=== PATIENT | male | born 1950 | race Caucasian/White ===

== ENCOUNTER 2019-07-09 15:01 | Emergency (ER) | payer OTHER ==
[2019-07-09 15:39] VITALS: TEMP 97.9; BMI 21.7
[2019-07-09] MEDS ORDERED: CEFAZOLIN 1 GM/D5W 1 GM/50 ML BAG IVPB ONE (15:59)
[2019-07-09] MEDS ORDERED: DIPHTH,PERTUSS(ACELL),TET 0.5 ML DISP.SYRIN IM ONE ×2 (16:00→16:21)
[2019-07-09] MEDS ORDERED: MORPHINE SULFATE 2 MG/ML VIAL IVPUSH ONE (16:00)
--- NOTE | 2019-07-09 16:01 | PDOC ---
Attending Attestation - Resident Resident Name: Mavis Mendenhall - ED Attending Attestation I have performed the following: I have examined & evaluated the patient, The case was reviewed & discussed with the resident, I agree w/resident's findings & plan, Exceptions are as noted - HPI HPI: 07/09/19 15:59 68-year-old gentleman history of EtOH abuse resenting with right leg pain, patient states he was crossing the street when he slipped and felt his leg turned associated with severe right leg pain. Patient denies any numbness, tingling denies any head injury, neck pain, back pain. He does endorse right wrist pain right hip pain in addition to his right lower extremity pain. Patient denies any chest pain, shortness of breath, fever, chills, nausea, vomiting, blurry vision, focal numbness, tingling or weakness, abdominal pain. Exam: GENERAL: The patient is awake, alert, and fully oriented, Nontoxic - in no acute distress. HEAD: Normocephalic, atraumatic. EYES: extraocular movements intact, sclera anicteric, conjunctiva clear. ENT: Normal voice, Moist mucous membranes. NECK: Normal range of motion, supple BACK: No focal bony or midline cervical, thoracic, lumbar tenderness. No bruising, ecchymosis, crepitus, step-offs noted. LUNGS: Breath sounds equal, clear to auscultation bilaterally. No wheezes, no rhonchi, no rales. HEART: Regular rate and rhythm, normal S1 and S2 without murmur, rub or gallop. ABDOMEN: Soft, nontender, No guarding, no rebound. No CVA tenderness EXTREMITIES: Open wound and crepitus/focal tenderness noted on the proximal right almonte, DP and PT pulses intact and symmetric, sensation intact and symmetric bilaterally. Mild discomfort noted on palpation to the right hip. Mild tenderness on the distal R radius. NEUROLOGICAL: No facial assymetry, Normal speech, moving all 4 ext spontaneously and symmetricially (RLE limited due to pain) PSYCH: Normal mood, normal affect. SKIN: Warm, Dry, normal turgor, open woundon R almonte, suspect open tib fx will obtain xray to ro hip fx, wrist fx will give tetnaus, ancef - Medical Decision Making 07/09/19 18:56 Patient's lower extremity x-ray noted for a tib-fib fracture was reduced- cw maisoneuve fx pt noted to have expanding mass in proximal tibia - DP/PT pulses palpable, cap refill intact - will continue to observe for compartment syndrome and neuro vascular compromise pt given ancef, splinted with posterior splint and u splint pts wrist fx cw scaphoid fracture and was placed in volar splint discussed with dr. schaeffer, - deferred and recommended transfer for trauma workup at [facility] will trasnfer to [facility] for trauma workup and ortho eval Heart Score/ECG Review - ECG Impressions Comment:: 07/09/19 17:34 Twelve-lead EKG was performed and reviewed by me. There is normal sinus rhythm with a normal rate. Rate of 66 The axis is normal. The intervals are normal. There is normal R wave progression There are no ST or T wave abnormalities. Impression: Normal twelve-lead EKG
[2019-07-09] MEDS ORDERED: MORPHINE SULFATE 2 MG/ML VIAL ONE ×2 (16:13→20:11)
[2019-07-09] MEDS ORDERED: CEFAZOLIN 1 GM/D5W 1 GM/50 ML BAG ONE (16:20)
[2019-07-09 16:29] LABS: BASO % 0.6 % (0-2.0); EOS % 1.1 % (0-4.5); HEMOGLOBIN 13.2 GM/dL (11.7-16.9); LYMPH % 10.9 % (8-40); MCH 33.3 pg (25.7-33.7); MCHC 33.7 g/dl (32.0-35.9); MEAN CELL VOLUME 98.7 fl (80-96); MEAN PLT VOLUME 7.5 fl (7.5-11.1); MONO % 11.4 % (3.8-10.2); PLATELET COUNT 231 K/MM3 (134-434); RBC 3.95 M/mm3 (4.00-5.60); RDW 14.6 % (11.9-15.9); WHITE BLOOD COUNT 7.1 K/mm3 (4.0-10.0)
[2019-07-09] MEDS ORDERED: morphine SULFATE 4 MG/ML VIAL ONE ×2 (16:31→19:09)
[2019-07-09] MEDS ORDERED: morphine CARPU-JECT 4 MG/1 ML DISP.SYRIN IVPUSH ONE ×3 (16:31→20:07)
[2019-07-09 16:40] LABS: INR 0.98 (0.83-1.09); PROTHROMBIN TIME (PATIENT) 11.6 SEC (9.7-13.0)
[2019-07-09 16:49] LABS: BILIRUBIN,TOTAL 0.4 mg/dL (0.2-1); BLOOD UREA NITROGEN 7.7 mg/dL (7-18); CREATININE 0.7 mg/dL (0.55-1.3); POTASSIUM 3.8 mmol/L (3.5-5.1); TOT PROT 7.3 g/dl (6.4-8.2)
--- NOTE | 2019-07-09 16:54 | PDOC ---
History of Present Illness - General Chief Complaint: Pain Stated Complaint: RT ANKLE INJ Time Seen by Provider: 07/09/19 15:42 History Source: Patient Exam Limitations: No Limitations - History of Present Illness Initial Comments: Pt is a 68 yo M, with PMH of polysubstance abuse (current alcohol and prior IVDU ), who is presenting via EMS after a fall. Pt states he was walking in the street when he slipped and fell into the snow, although he is unclear on the mechanism. Pt denies hitting his head, having LOC, or nausea/vomiting. Pt currently complains of pain in his R wrist, R hip, and R lower leg. Pt states his R foot "was turned all the way out" before he got into the ambulance, it is unclear if any reduction was completed or attempted via EMS. Pt denies any prior withdrawal from alcohol or seizures, but does endorse frequent falls. Pt does not have a PCP and it is unclear if he has other medical problems. Pt denies any recent fevers/chills, headache, vision changes, syncope, chest pain, palpitations, SOB, nausea/vomiting, abdominal pain, urinary symptoms, diarrhea/ constipation, or leg swelling. Allergies: NKDA PCP: None Social: Pt smokes 1/2 ppd and "a quart of beer per day". Pt denies any current IVDU (last use >10 years ago). Pt denies any recent travel or sick contacts. Surgical: none but "broke his right leg a couple of times" Family: no relevant history. 07/09/19 16:46 07/09/19 17:41 07/09/19 17:45 Past History - Travel Traveled outside of the country in the last 30 days: No Close contact w/someone who was outside of country & ill: No - Past Medical History Allergies/Adverse Reactions: Allergies Allergy/AdvReac Type Severity Reaction Status Date / Time No Known Allergies Allergy Verified 07/09/19 16:07 CVA: No COPD: No - Psycho Social/Smoking Cessation Hx Smoking History: Current every day smoker Number of Cigarettes Smoked Daily: 20 Information on smoking cessation initiated: Yes Hx Alcohol Use: Yes ("I drink beer") Drug/Substance Use Hx: No Trauma Specific PMHX - Complaint Specific PMHX Arthritis: No Back Injury: No Neck Injury: No Hx Sacro Iliac Joint Dysfunction: No Review of Systems - Review of Systems Able to Perform ROS?: Yes Is the patient limited Danish proficient: No Constitutional: Yes: Weight Stable. No: Chills, Diaphoresis, Fever, Loss of Appetite, Malaise, Weakness HEENTM: No: Recent change in vision, Nose Congestion, Throat Pain, Throat Swelling, Difficulty Swallowing Respiratory: No: Cough, Orthopnea, Shortness of Breath Cardiac (ROS): No: Chest Pain, Edema, Irregular Heart Rate, Lightheadedness, Palpitations, Syncope, Chest Tightness ABD/GI: No: Constipated, Diarrhea, Nausea, Poor Appetite, Poor Fluid Intake, Vomiting : No: Burning, Dysuria, Frequency, Pain, Urgency Musculoskeletal: Yes: See HPI, Joint Pain. No: Back Pain, Joint Swelling, Muscle Weakness, Neck Pain Integumentary: No: Change in Color, Rash Neurological: No: Headache, Numbness, Weakness, Unsteady Gait, Dizziness Psychiatric: No: Sleep Pattern Change, Change in Appetite Endocrine: No: Increased Urine, Change in Weight Hematologic/Lymphatic: No: Anemia, Blood Clots, Easy Bleeding, Easy Bruising All Other Systems: Reviewed and Negative *Physical Exam - Vital Signs Last Vital Signs Temp Pulse Resp BP Pulse Ox 97.9 F 75 20 169/59 L 100 07/09/19 15:05 07/09/19 15:05 07/09/19 15:05 07/09/19 15:05 07/09/19 15:05 - Physical Exam HTN (169/59), pt afebrile. Pt in visible pain with movement, visible bleeding from R lower leg. Thin body habitus. Pt alert and oriented x3. social worker aide generally intact, muscular strength and sensation intact. B/l LE neurovascularly intact. Pt can move toes of R foot, but will not flex or extend at the ankle or at the knee due to pain. TTP over R hip. Old scar down midline of R leg, with deformity at distal tibia. New area of deformity over mid -shaft tibia with ~0.5 cm laceration, bleeding controlled with pressure dressing. No midline spinal tenderness, step-offs, or crepitus. Head normocephalic, atraumatic. Eyes PERRLA, EOMI. Oropharynx without erythema or exudates, no LAD b/l. No nasal congestion. Hearing intact. Clear heart sounds, S1/S2, no JVD, b/l pedal edema, or heart murmur. Clear lung sounds, no respiratory distress, wheezes, crackles, or accessory muscle use. No abdominal or CVA tenderness to palpation, no rebound, no guarding. Abdomen soft, non-distended, and with normoactive bowel sounds. Skin without jaundice or rash. 07/09/19 17:46 07/09/19 17:56 Update PE: Pressure bandage changed. RLE neurovascularly intact. RLE splinted with stirrup and posterior splint. R wrist splinted in short arm orthoglass. RUE neurovascularly intact. 07/09/19 19:45 Procedures - Splinting Splint Location: Right: Wrist (scaphoid/short arm splint), Ankle (tib/fib stirrup and post leg) Pre-Proc Neuro Vasc Exam: normal Hand-Made Type: orthoglass Splint Type: Yes: Thumb Spica, Short Leg (post leg to knee and stirrup) Post-Proc Neuro Vasc Exam: normal Cirilo Bandage: yes Sling: No Complications: No ED Treatment Course - LABORATORY CBC & Chemistry Diagram: 07/09/19 16:10 07/09/19 16:10 - ADDITIONAL ORDERS Additional order review: Laboratory Results 07/09/19 16:10 PT with INR 11.60 INR 0.98 07/09/19 16:10 RBC 3.95 L MCV 98.7 H MCHC 33.7 RDW 14.6 MPV 7.5 Neutrophils % 76.0 Lymphocytes % 10.9 Monocytes % 11.4 H Eosinophils % 1.1 Basophils % 0.6 - RADIOLOGY Radiology Studies Ordered: Category Date Time Status ANKLE & FOOT-RIGHT* [RAD] Stat Radiology 07/09/19 16:01 Ordered - Medications Given in the ED: ED Medications Discontinued Medications Generic Name Dose Route Start Last Admin Trade Name Freq PRN Reason Stop Dose Admin Diphtheria/Tetanus/Acell Pertussis 0.5 ml 07/09/19 16:00 07/09/19 16:27 Boostrix - IM 07/09/19 16:01 0.5 ml .ONCE ONE Administration Cefazolin Sodium 1 gm in 50 mls @ 100 mls/hr 07/09/19 15:59 07/09/19 16:27 Ancef 1 Gm Premixed Ivpb - IVPB 07/09/19 16:28 100 mls/hr ONCE ONE Administration Morphine Sulfate 2 mg 07/09/19 16:00 07/09/19 16:18 Morphine Sulfate IVPUSH 07/09/19 16:01 2 mg ONCE ONE Administration Morphine Sulfate 4 mg 07/09/19 16:31 07/09/19 16:35 Morphine Injection - IVPUSH 07/09/19 16:32 4 mg ONCE ONE Administration Medical Decision Making - Medical Decision Making Pt was seen at bedside, also will be seen by attending Dr. Miller. Pt presenting with R wrist, R hip, and R leg pain after a fall. Will evaluate with x-rays of R wrist/hand, hip, tib/fib, and ankle/foot. Provided 2 mg IV morphine for improvement of pain. Providing tetanus booster and 1 g ancef for likely open tib/fib fracture. Will continue to reassess pt and monitor for symptomatic improvement. 07/09/19 19:47 CBC, CMP, and coags WNL X-ray of R tib/fib shows mid-shaft tibia fracture and distal fibula fx. wrist x-ray with scaphoid fracture and small avulsion piece. Provided additional 4 mg IV morphine Spoke with orthopedics (Dr. Akbar) who recommended transfer to trauma center due to multiple fractures and open tib/fib. Pt accepted to Dr. Murphy (Trauma) at [facility] for further evaluation and surgical repair of fractures. Extremities neurovascularly intact prior to transfer. R wrist and R lower leg splinted (see procedure note) Pt hemodynamically stable post morphine administration. 07/09/19 19:47 Discharge - Discharge Information Problems reviewed: Yes Clinical Impression/Diagnosis: Open fracture of tibia and fibula Qualifiers: Encounter type: initial encounter Open fracture type: open type I or II Laterality: right Qualified Code(s): S82.201B - Unspecified fracture of shaft of right tibia, initial encounter for open fracture type I or II; S82.401B - Unspecified fracture of shaft of right fibula, initial encounter for open fracture type I or II Scaphoid fracture of wrist Qualifiers: Encounter type: sequela Scaphoid bone location: middle third Fracture type: closed Fracture alignment: nondisplaced Laterality: right Qualified Code(s): S62.024S - Nondisplaced fracture of middle third of navicular [scaphoid] bone of right wrist, sequela Fall Qualifiers: Encounter type: initial encounter Qualified Code(s): W19.XXXA - Unspecified fall, initial encounter Condition: Stable Disposition: TRANSFER ACUTE CARE/OTHER HOSP - Admission No - Follow up/Referral - Patient Discharge Instructions - Post Discharge Activity - Transfer to Acute Care Facility Receiving Facility Name: [facility] Accepting Physician:: Dr. Murphy (Trauma)
[2019-07-09] MEDS ORDERED: ACETAMINOPHEN 1000 MG/100 ML VIAL (NON FORMULARY) IVPB ONE (20:06)
[2019-07-09 22:19] VITALS: BP 119/67; PULSE 71
--- NOTE | 2019-07-10 09:25 | EKG ---
Test Reason : Blood Pressure : / mmHG Vent. Rate : 066 BPM Atrial Rate : 066 BPM P-R Int : 116 ms QRS Dur : 074 ms QT Int : 416 ms P-R-T Axes : 044 082 080 degrees QTc Int : 436 ms NORMAL SINUS RHYTHM NORMAL ECG NO PREVIOUS ECGS AVAILABLE Confirmed by MD Jesus Manuel, Rg ([id number]) on 07/10/2019 9:25:23 AM Referred By: Confirmed By:Rg Ken MD
== END 2019-07-09 20:52 | disposition short-term general hospital (02) ==
LOC: JER 15:01
PROC: 2W3CX1Z Immobilization of Right Lower Arm using Splint (ICD-10-PCS; principal; 2019-07-09)
PROC: 2W3QX1Z Immobilization of Right Lower Leg using Splint (ICD-10-PCS; 2019-07-09)
PROC: 3E033NZ Introduction of Analgesics, Hypnotics, Sedatives into Peripheral Vein, Percutaneous Approach (ICD-10-PCS; 2019-07-09)
PROC: 3E0234Z Introduction of Serum, Toxoid and Vaccine into Muscle, Percutaneous Approach (ICD-10-PCS; 2019-07-09)
PROC: 3E03329 Introduction of Other Anti-infective into Peripheral Vein, Percutaneous Approach (ICD-10-PCS; 2019-07-09)
DX: S82.201B Unspecified fracture of shaft of right tibia, initial encounter for open fracture type I or II (principal); S62.024A Nondisplaced fracture of middle third of navicular [scaphoid] bone of right wrist, initial encounter for closed fracture; W00.0XXA Fall on same level due to ice and snow, initial encounter; Y93.89 Activity, other specified; Y92.410 Unspecified street and highway as the place of occurrence of the external cause; F17.210 Nicotine dependence, cigarettes, uncomplicated; F10.99 Alcohol use, unspecified with unspecified alcohol-induced disorder; F19.10 Other psychoactive substance abuse, uncomplicated
CPT/HCPCS: 29126; 29515; 36415; 71045-TC-FY; 73110-TC-RT-FY; 73130-TC-RT-FY; 73523-TC-FY; 73590-TC-RT-FY; 73610-TC-RT-FY; 73630-TC-RT-FY; 80053; 85025; 85610; 86850; 86900; 86901; 90471; 90715; 93005; 93010; 96365; 96375; 96376; 99283-25

== ENCOUNTER 2023-07-11 05:34 | Emergency (ER) | payer OTHER ==
[2023-07-11 05:40] VITALS: BMI 23.3
[2023-07-11 08:01] LABS: HEMATOCRIT 35.9 % (35.4-49); MCH 31.2 pg (25.7-33.7); MCHC 33.5 g/dl (32.0-35.9); MEAN CELL VOLUME 93.2 fl (80-96); MEAN PLT VOLUME 8.1 fl (7.5-11.1); PLATELET COUNT 244.5 10^3/uL (134-434); RBC 3.85 10^6/uL (4.00-5.60); RDW 14.2 % (11.9-15.9); WHITE BLOOD COUNT 6.5 10^3/uL (4.0-10.8)
[2023-07-11 08:39] LABS: INR 1.1 (0.83-1.09); PROTHROMBIN TIME (PATIENT) 12.8 SEC (9.7-13.0)
[2023-07-11 09:07] LABS: BILIRUBIN,TOTAL 0.4 mg/dl (0.2-1); CALCIUM 9.6 mg/dl (8.5-10.1); CREATININE 0.6 mg/dl (0.6-1.3); TOT PROT 6.9 g/dl (6.4-8.2)
[2023-07-11] MEDS ORDERED: ONDANSETRON 4 MG/2 ML VIAL IVPUSH PRN ×2 (10:13→15:16)
[2023-07-11] MEDS ORDERED: oxyCODONE HCL 5 MG TABLET PO PRN (10:13)
[2023-07-11] MEDS ORDERED: MIDAZOLAM HCL 2 MG/2 ML SINGLE DOSE VIAL ONE (10:16)
[2023-07-11] MEDS ORDERED: FENTANYL CITRATE/PF 50 MCG/ML VIAL ONE (10:17)
[2023-07-11] MEDS ORDERED: ROPIVACAINE HCL 0.5% 30ML VIAL ONE (10:17)
[2023-07-11] MEDS ORDERED: PROPOFOL 20 ML ONE ×3 (10:24→14:47)
[2023-07-11] MEDS ORDERED: TRANEXAMIC ACID 1000 MG/10 ML VIAL ONE (10:31)
[2023-07-11] MEDS ORDERED: VANCOMYCIN 1,000 MG VIAL (RESTRICTED TO ID ONLY) ONE (10:31)
[2023-07-11] MEDS ORDERED: ROCURONIUM BROMIDE 50 MG/5 ML SYRINGE ONE (12:51)
[2023-07-11] MEDS ORDERED: VANCOMYCIN 1,000 MG VIAL (RESTRICTED TO ID ONLY) IVPB ONE (14:00)
[2023-07-11] MEDS ORDERED: NEOSTIGMINE METHYLSULFATE 0.5 MG/1 ML - 10 ML MDV ONE (14:02)
[2023-07-11] MEDS ORDERED: ACETAMINOPHEN INJECTION 100 ML IVPB ONE (15:13)
[2023-07-11] MEDS ORDERED: KETOROLAC TROMETHAMINE 30 MG/1 ML VIAL ONE (15:13)
[2023-07-11] MEDS ORDERED: MAGNESIUM HYDROX 2400MG/30ML ORAL SUSPENSION 30 ML CUP PO PRN (15:16)
[2023-07-11] MEDS ORDERED: MAG HYDROX/AL HYDROX/SIMETH 30 ML UNIT-DOSE CUP PO PRN (15:16)
[2023-07-11] MEDS ORDERED: LACTATED RINGERS SOLUTION 1,000 ML IV SCH (15:30)
[2023-07-11] MEDS ORDERED: ACETAMINOPHEN 1000 MG/100 ML BAG IVPB ONE (15:51)
[2023-07-11] MEDS: oxyCODONE HCL 5 MG TABLET PO PRN ×2 (18:51→22:50)
[2023-07-11] MEDS: CEFAZOLIN SODIUM 2 GM in DEXTROSE 5%-WATER 100 ML IVPB SCH (20:22)
[2023-07-11] MEDS: SENNOSIDES/DOCUSATE COMBO (SENNA PLUS) TABLET (UD) PO SCH (21:05)
[2023-07-12] MEDS ORDERED: VANCOMYCIN 1,000 MG in DEXTROSE 5%-WATER - 250 ML IVPB ONE
[2023-07-12] MEDS: LACTATED RINGERS SOLUTION 1,000 ML IV SCH ×2 (02:57→10:36)
[2023-07-12] MEDS: CEFAZOLIN SODIUM 2 GM in DEXTROSE 5%-WATER 100 ML IVPB SCH ×2 (03:02→12:30)
[2023-07-12] MEDS: oxyCODONE HCL 5 MG TABLET PO PRN ×2 (04:30→09:28)
[2023-07-12 05:04] VITALS: RESP 18
[2023-07-12] MEDS ORDERED: ACETAMINOPHEN 500 MG TABLET (FP) PO SCH (07:00)
[2023-07-12] MEDS ORDERED: ASPIRIN 325 MG TABLET PO SCH (08:00)
[2023-07-12 08:06] LABS: HEMATOCRIT 28.4 % (35.4-49); HEMOGLOBIN 9.4 G/dL (11.7-16.9); MCHC 33.1 g/dl (32.0-35.9); MEAN CELL VOLUME 93.3 fl (80-96); PLATELET COUNT 222.9 10^3/uL (134-434); RBC 3.04 10^6/uL (4.00-5.60); RDW 14.1 % (11.9-15.9); WHITE BLOOD COUNT 8.3 10^3/uL (4.0-10.8)
[2023-07-12 08:18] LABS: CALCIUM 8.7 mg/dl (8.5-10.1); CREATININE 0.6 mg/dl (0.6-1.3)
[2023-07-12] MEDS: SENNOSIDES/DOCUSATE COMBO (SENNA PLUS) TABLET (UD) PO SCH (09:29)
[2023-07-12] MEDS ORDERED: PANTOPRAZOLE 40 MG TABLET PO SCH (10:00)
[2023-07-12] MEDS ORDERED: MULTIVITAMINS (DAILY MVI) TABLET (FP) PO SCH (10:00)
[2023-07-12 11:20] VITALS: BP 122/62; PULSE 76; TEMP 97.5
== END 2023-07-12 16:36 | disposition home or self-care (01) ==
LOC: FER 05:34 → FM/S 06:38 → UNDODISOB 07-12 15:12
PROVIDERS: ADMIT Internal Medicine; ATTEND Internal Medicine
PROC: 0RRK0J7 Replacement of Left Shoulder Joint with Synthetic Substitute, Glenoid Surface, Open Approach (ICD-10-PCS; 2023-07-11)
PROC: 0LQ10ZZ Repair Right Shoulder Tendon, Open Approach (ICD-10-PCS; 2023-07-11)
PROC: 3E0T3BZ Introduction of Anesthetic Agent into Peripheral Nerves and Plexi, Percutaneous Approach (ICD-10-PCS; 2023-07-11)
PROC: 3E033NZ Introduction of Analgesics, Hypnotics, Sedatives into Peripheral Vein, Percutaneous Approach (ICD-10-PCS; 2023-07-11)
PROC: 3E03329 Introduction of Other Anti-infective into Peripheral Vein, Percutaneous Approach (ICD-10-PCS; 2023-07-11)
PROC: 0RPK0J7 Removal of Synthetic Substitute from Left Shoulder Joint, Glenoid Surface, Open Approach (ICD-10-PCS; principal; 2023-07-11 12:07)
DX: M24.412 Recurrent dislocation, left shoulder (principal); Z91.199 Patient's noncompliance with other medical treatment and regimen due to unspecified reason; Z96.612 Presence of left artificial shoulder joint; F17.200 Nicotine dependence, unspecified, uncomplicated
CPT/HCPCS: 36415; 73030-TC-LT-FY; 73060-TC-LT-FY; 73060-TC-RT-FY; 73560-TC-LT-FY; 80048; 80053; 81003; 85027; 85610; 86850; 86900; 86901; 87070; 87075; 87086; 87205; 87635; 93005; 94760; 96365; 96366; 96375; 97116-GP; 97162-GP; 99285-25; C1713; C1776; G0378; J0131

== ENCOUNTER 2023-07-29 10:58 | Inpatient (IN) | payer OTHER ==
[2023-07-28 14:34] VITALS: BMI 23.3
[~2023-07-29 10:58] MED LIST: ONDANSETRON 4 MG/2 ML VIAL IVPUSH PRN
[2023-07-29] MEDS ORDERED: BUPIVACAINE HCL/PF 2.5 MG/ML - 30 ML VIAL IJ ONE (11:44)
[2023-07-29] MEDS ORDERED: MIDAZOLAM HCL 2 MG/2 ML SINGLE DOSE VIAL ONE ×3 (12:23→12:54)
[2023-07-29] MEDS ORDERED: FENTANYL CITRATE/PF 50 MCG/ML VIAL ONE (12:23)
[2023-07-29] MEDS ORDERED: PROPOFOL 40 ML ONE ×2 (12:38→12:54)
[2023-07-29] MEDS ORDERED: SUCCINYLCHOLINE CHLORIDE 200 MG/10 ML SYRINGE ONE (12:40)
[2023-07-29] MEDS ORDERED: ceFAZolin SODIUM 1 GM VIAL ONE (13:00)
[2023-07-29] MEDS ORDERED: DEXAMETHASONE SOD PHOSPHATE 4 MG/1 ML VIAL ONE (13:02)
[2023-07-29] MEDS ORDERED: ONDANSETRON 4 MG/2 ML VIAL ONE (13:02)
[2023-07-29] MEDS ORDERED: TRANEXAMIC ACID 1000 MG/10 ML VIAL ONE (13:27)
[2023-07-29] MEDS ORDERED: HYDROmorphone HCL/PF 1 MG/ML VIAL ONE (14:26)
[2023-07-29] MEDS ORDERED: MAGNESIUM HYDROX 2400MG/30ML ORAL SUSPENSION 30 ML CUP PO PRN (14:47)
[2023-07-29] MEDS ORDERED: MAG HYDROX/AL HYDROX/SIMETH 30 ML UNIT-DOSE CUP PO PRN (14:47)
[2023-07-29] MEDS ORDERED: ONDANSETRON 4 MG/2 ML VIAL IVPUSH PRN (14:47)
[2023-07-29 15:27] LABS: HEMATOCRIT 28.4 % (35.4-49); HEMOGLOBIN 9.3 G/dL (11.7-16.9); MCH 29.9 pg (25.7-33.7); MCHC 32.7 g/dl (32.0-35.9); MEAN CELL VOLUME 91.3 fl (80-96); MEAN PLT VOLUME 7.5 fl (7.5-11.1); PLATELET COUNT 305.6 10^3/uL (134-434); RBC 3.11 10^6/uL (4.00-5.60); RDW 14.5 % (11.9-15.9); WHITE BLOOD COUNT 3.7 10^3/uL (4.0-10.8)
[2023-07-29] MEDS ORDERED: CEFEPIME HCL 1 GM VIAL (RESTRICTED TO ID) IVPB SCH (15:30)
[2023-07-29 15:34] LABS: PLATELET ESTIMATE ADEQUATE
[2023-07-29 15:38] LABS: ALBUMIN 3.7 g/dl (3.4-5.0); BILIRUBIN,TOTAL 0.3 mg/dl (0.2-1); CREATININE 0.7 mg/dl (0.6-1.3); POTASSIUM 4.5 mmol/L (3.5-5.1); TOT PROT 6.2 g/dl (6.4-8.2)
[2023-07-29] MEDS: LACTATED RINGERS SOLUTION 1,000 ML IV SCH (17:55)
[2023-07-29] MEDS: CEFEPIME 1 GM in DEXTROSE 5%-WATER 100 ML IVPB SCH ×2 (18:14→22:48)
[2023-07-29] MEDS: VANCOMYCIN/WATER FOR INJ (PEG) 1,000 MG/200 ML BAG IVPB SCH (18:14)
[2023-07-29] MEDS: oxyCODONE HCL 5 MG TABLET PO PRN ×2 (18:40→22:47)
[2023-07-29] MEDS ORDERED: CEFAZOLIN SODIUM 2 GM in DEXTROSE 5%-WATER 100 ML IVPB SCH (20:00)
[2023-07-29] MEDS: SENNOSIDES/DOCUSATE COMBO (SENNA PLUS) TABLET (UD) PO SCH (22:47)
[2023-07-30] MEDS: VANCOMYCIN/WATER FOR INJ (PEG) 1,000 MG/200 ML BAG IVPB SCH ×2 (02:30→15:01)
[2023-07-30] MEDS: CEFEPIME 1 GM in DEXTROSE 5%-WATER 100 ML IVPB SCH ×3 (07:32→23:22)
[2023-07-30 09:01] LABS: CALCIUM 9.2 mg/dl (8.5-10.1); CREATININE 0.6 mg/dl (0.6-1.3); POTASSIUM 4.9 mmol/L (3.5-5.1)
[2023-07-30 09:41] LABS: BASO % 0.2 % (0-2.0); EOS % 0.1 % (0-4.5); HEMATOCRIT 24.4 % (35.4-49); HEMOGLOBIN 8.5 GM/dL (11.7-16.9); LYMPH % 16.5 % (8-40); MCH 31.1 pg (25.7-33.7); MCHC 34.9 g/dl (32.0-35.9); MEAN CELL VOLUME 89.2 fl (80-96); MEAN PLT VOLUME 7.7 fl (7.5-11.1); MONO % 10.4 % (3.8-10.2); NEUT % 72.8 % (42.8-82.8); PLATELET COUNT 304 10^3/uL (134-434); RBC 2.73 M/mm3 (4.00-5.60); RDW 13.9 % (11.9-15.9); WHITE BLOOD COUNT 5.7 K/mm3 (4.0-10.0)
[2023-07-30] MEDS ORDERED: PATIENT'S OWN MEDICATION (NON-FORMULARY) (Multivitamin [Multiple Vitamins] 1 EACH Tablet) PO SCH (10:00)
[2023-07-30] MEDS ORDERED: PANTOPRAZOLE 40 MG TABLET PO SCH (10:00)
[2023-07-30] MEDS: LOSARTAN POTASSIUM 25 MG TABLET PO SCH (10:11)
[2023-07-30] MEDS: SENNOSIDES/DOCUSATE COMBO (SENNA PLUS) TABLET (UD) PO SCH ×2 (10:12→21:02)
[2023-07-30] MEDS: FOLIC ACID 1 MG TABLET (FP) PO SCH (10:12)
[2023-07-30] MEDS: THIAMINE HCL 100 MG TABLET (FP) PO SCH (10:12)
[2023-07-30] MEDS: CYANOCOBALAMIN (VITAMIN B-12) 100 MCG TABLET PO SCH (10:12)
[2023-07-30] MEDS: NICOTINE 7 MG/24 HOURS TOPICAL PATCH TD SCH (10:12)
[2023-07-30] MEDS: MULTIVITAMINS (DAILY MVI) TABLET (FP) PO SCH (10:12)
[2023-07-30] MEDS: PANTOPRAZOLE 40 MG TABLET PO SCH (10:12)
[2023-07-30] MEDS: LACTATED RINGERS SOLUTION 1,000 ML IV SCH (10:13)
[2023-07-30] MEDS: oxyCODONE HCL 5 MG TABLET PO PRN ×2 (15:54→20:54)
[2023-07-31] MEDS: VANCOMYCIN/WATER FOR INJ (PEG) 1,000 MG/200 ML BAG IVPB SCH (03:09)
[2023-07-31] MEDS: CEFEPIME 1 GM in DEXTROSE 5%-WATER 100 ML IVPB SCH (07:12)
[2023-07-31] MEDS: MULTIVITAMINS (DAILY MVI) TABLET (FP) PO SCH (09:40)
[2023-07-31] MEDS: THIAMINE HCL 100 MG TABLET (FP) PO SCH (09:40)
[2023-07-31] MEDS: NICOTINE 7 MG/24 HOURS TOPICAL PATCH TD SCH ×2 (09:40→09:45)
[2023-07-31] MEDS: FOLIC ACID 1 MG TABLET (FP) PO SCH (09:40)
[2023-07-31] MEDS: SENNOSIDES/DOCUSATE COMBO (SENNA PLUS) TABLET (UD) PO SCH (09:40)
[2023-07-31] MEDS: LOSARTAN POTASSIUM 25 MG TABLET PO SCH (09:40)
[2023-07-31] MEDS: CYANOCOBALAMIN (VITAMIN B-12) 100 MCG TABLET PO SCH (09:40)
[2023-07-31] MEDS: PANTOPRAZOLE 40 MG TABLET PO SCH (09:40)
[2023-07-31 11:07] VITALS: BP 126/72; PULSE 64; RESP 16; TEMP 98.3
== END 2023-07-31 14:39 | DRG 920 ==
LOC: FASU 10:58 → FM/S 14:45
PROVIDERS: ADMIT Family Medicine; ATTEND Family Medicine
PROC: 3E10X8Z Irrigation of Skin and Mucous Membranes using Irrigating Substance (ICD-10-PCS; 2023-07-29)
PROC: 0HBCXZZ Excision of Left Upper Arm Skin, External Approach (ICD-10-PCS; principal; 2023-07-29 09:00)
DX: T81.31XA Disruption of external operation (surgical) wound, not elsewhere classified, initial encounter (principal); L76.34 Postprocedural seroma of skin and subcutaneous tissue following other procedure; I10 Essential (primary) hypertension; J44.9 Chronic obstructive pulmonary disease, unspecified; D64.9 Anemia, unspecified; F10.10 Alcohol abuse, uncomplicated; Y83.8 Other surgical procedures as the cause of abnormal reaction of the patient, or of later complication, without mention of misadventure at the time of the procedure; Y92.9 Unspecified place or not applicable
CPT/HCPCS: 36415; 80048; 80053; 85025; 85651; 86140; 87070; 87205; 94760; 97116-GP; 97162-GP